=== PATIENT | male | born 1990 | race Caucasian/White ===

== ENCOUNTER 2021-09-04 03:31 | Emergency (ER) | payer SELFPAY ==
[2021-09-04 05:10] LABS: ACETAMINOPHEN <2.0 ug/mL; BLOOD UREA NITROGEN,BUN 6 mg/dL (7.0-18.0); CARBON DIOXIDE,CO2 24.6 mmol/L (21.0-32.0); CHLORIDE,CL 102 mmol/L (98-107); GLUCOSE RANDOM 104 mg/dL (74-106); POTASSIUM,K 4.1 mmol/L (3.5-5.1); SODIUM,NA 141 mmol/L (136-148)
[2021-09-04 05:20] LABS: ESTIMATED GFR 121 mL/min (>60)
== END 2021-09-04 06:07 ==
LOC: MW.ED 03:31
DX: Z02.89 Encounter for other administrative examinations (principal); Z20.822 Contact with and (suspected) exposure to COVID-19
CPT/HCPCS: 36415; 80053; 80143; 80179; 80305-QW; 80307; 81001; 83735; 84439; 84443; 84481; 85025; 93005; 99284; U0002

== ENCOUNTER 2023-02-22 14:18 | Emergency (ER) | payer SELFPAY | END 2023-02-22 17:25 | disposition home or self-care (01) | LOC: MW.ED 14:18 ==